=== PATIENT | female | born 1975 | race Two or more races ===

== ENCOUNTER 2024-10-12 17:27 | Inpatient (IN) | payer MEDICARE, MEDICAID ==
[~2024-10-12] VITALS: Ht 157.5 cm; Wt 88.2 kg
[2024-10-12 19:34] LABS: Basophils # (auto) 0.2 10 ^3/uL (0-0.2); Basophils % (auto) 1.7 % (0.0-2.0); Eosinophils # (auto) 0.3 10 ^3/uL (0-0.8); Eosinophils % (auto) 2.2 % (0.0-7.0); Hematocrit 36.4 % (36.0-46.0); Hemoglobin 12.3 g/dL (12.2-16.2); Lymphocytes # (auto) 3.1 10 ^3/uL (0.4-5.4); Lymphocytes % (auto) 21.9 % (10.0-50.0); Mean Corpuscular Hemoglobin 29.6 pg (28.0-32.0); Mean Corpuscular Hgb Conc. 33.8 g/dL (32.0-36.0); Mean Corpuscular Volume 87.5 fL (80.0-100.0); Monocytes # (auto) 1.1 10 ^3/uL (0-1.3); Monocytes % (auto) 7.7 % (0.0-12.0); Neutrophils # (auto) 9.3 10 ^3/uL (1.6-8.6); Neutrophils % (auto) 66.5 % (37.0-80.0); Nucleated Red Blood Cells % 0.1 %; Platelet Count (auto) 532 10^3/uL (140-450); Red Blood Cells 4.16 10^6/uL (4.0-5.20); Red Cell Distribution Width 14.2 % (11.8-14.3); White Blood Cell 13.9 10^3/uL (4.4-10.8)
[2024-10-12 19:42] VITALS: O2SAT 97
[2024-10-12 19:55] LABS: Chloride 102 mmol/L (98-107); Potassium 4.4 mmol/L (3.5-5.1)
[2024-10-12 19:56] LABS: Anion Gap 10 (5-15); Calcium 10.4 mg/dL (8.7-10.4); Carbon Dioxide 22 mmol/L (20-31)
[2024-10-12] MEDS ORDERED: PIPERACILLIN-TAZOB 3.375GM 100 ML IV ONE (20:00)
--- NOTE | 2024-10-12 20:00 | ED.PDOC ---
History of Present Illness(SKN HPI Comments 49 year old female presents to ER for wound check. Patient with PMH significant for uncontrolled DM states she was admitted and had a right sided perianal abscess drained/packed in the OR at [facility] 6 days ago and notes signed out of [facility] AMA 3 days ago after being admitted for IV anti biotics/uncontrolled DM and presents to ER today for wound check. She reports 7/10 pain localized right perianal area. Denies use of medications for current symptoms. 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 Family History Family History: Unknown Social History Smoker: Non-Smoker Alcohol: Denies ETOH Use Drugs: Denies Drug Use Lives In: Home Constitutional: denies: chills, diaphoresis, fatigue, fever, malaise, sweats, weakness, others EENTM: denies: blurred vision, double vision, ear bleeding, ear discharge, ear drainage, ear pain, ear ringing, eye pain, eye redness, hearing loss, mouth pain, mouth swelling, nasal discharge, nose bleeding, nose congestion, nose pain, photophobia, tearing, throat pain, throat swelling, voice changes, others Respiratory: denies: cough, hemoptysis, orthopnea, SOB at rest, shortness of breath, SOB with excertion, stridor, wheezing, others Cardiovascular: denies: chest pain, dizzy spells, diaphoresis, Dyspnea on exert ion, edema, irregular heart beat, left arm pain, lightheadedness, palpitations, PND, syncope, others Gastrointestinal: denies: abdomen distended, abdominal pain, blood streaked bowels, constipated, diarrhea, dysphagia, difficulty swallowing, hematemesis, melena, nausea, poor appetite, poor fluid intake, rectal bleeding, rectal pain, vomiting, others Genitourinary: denies: abnormal vagina bleeding, burning, dyspareunia, dysuria, flank pain, frequency, hematuria, incontinence, pain, , vagina discharge, urgency, others Neurological: denies: dizziness, fainting, headache, left sided numbness, left sided weakness, numbness, paresthesia, pre-existing deficit, right sided numbness, right sided weakness, seizure, speech problems, tingling, tremors, weakness, others Musculoskeletal: denies: back pain, gout, joint pain, joint swelling, muscle pain, muscle stiffness, neck pain, others Integumetry: reports: others (As stated in HPI) Allergic/Immunocompromised: denies: Difficulty Healing, Frequent Infections, Hives, Itching, others Hematologic/Lymphatic: denies: anemia, blood clots, easy bleeding, easy bruising, swollen glands, others Endocrine: denies: excessive hunger, excessive sweating, excessive thirst, excessive urination, flushing, intolerance to cold, intolerance to heat, unexplained weight gain, unexplained weight loss, others Psychiatric: denies: anxiety, bipolar disorder, depression, hopeless, panic disorder, schizophrenia, sleepless, suicidal, others Physical Exam General Appearance: No Apparent Distress HEENT: PERRL/EOMI Neck: Full Range of Motion, Non-Tender, Normal Respiratory: Chest Non-Tender, Lungs Clear, No Accessory Muscle Use, No Respiratory Distress, Normal Breath Sounds Cardiovascular: No Murmur, No Gallop, Regular Rate/Rhythm Breast Exam: Deferred Gastrointestinal: Non Tender, No Pulsatile Mass, Soft Genitalia: Deferred Pelvic: Deferred Rectal: Deferred Extremities: Normal capillary refill, Normal range of motion Neurologic: Alert, No Motor Deficits, Normal Affect, Normal Mood, No Sensory Deficits Cerebellar Function: Normal Reflexes: Normal Skin: Dry, Warm, Other (Packing in place to 2 cm x 2cm wound of right perianal region with mild erythema surrounding wound edges. No drainage/fluctuance note d) Lymphatic: No Adenopathy Was a procedure done? Was a procedure done?: No Sedation Sedation?: No Differential Diagnosis (INTG) Differential Diagnosis: Abrasion Differential Diagnosis: Abscess Abscess: Bacteremia, Gas Gangrene Differential Diagnosis: Retained Foreign Body X-Ray, Labs, Meds, VS Vital Signs Date Time Temp Pulse Resp B/P (MAP) Pulse Ox O2 Delivery O2 Flow Rate FiO2 10/12/24 19:42 97 Room Air* 0 21 10/12/24 19:42 97.3 111 17 148/88 (108) 97 97.3 10/12/24 18:33 97.3 111 17 148/88 (108) 97 97.3 Lab Test 10/12/24 21:19 10/12/24 20:44 10/12/24 19:22 10/12/24 18:09 Range/Units POC Glucose 367 H 395 H 70-106 mg/dl Lactic Acid Level 2.0 2.7 *H 0.4-2.0 mmol/L White Blood Count 13.9 H 4.4-10.8 10^3/uL Red Blood Count 4.16 4.0-5.20 10^6/uL Hemoglobin 12.3 12.2-16.2 g/dL Hematocrit 36.4 36.0-46.0 % Mean Corpuscular Volume 87.5 80.0-100.0 fL Mean Corpuscular Hemoglobin 29.6 28.0-32.0 pg Mean Corpuscular Hemoglobin Concent 33.8 32.0-36.0 g/dL Red Cell Distribution Width 14.2 11.8-14.3 % Platelet Count 532 H 140-450 10^3/uL Mean Platelet Volume 7.8 6.9-10.8 fL Neutrophils (%) (Auto) 66.5 37.0-80.0 % Lymphocytes (%) (Auto) 21.9 10.0-50.0 % Monocytes (%) (Auto) 7.7 0.0-12.0 % Eosinophils (%) (Auto) 2.2 0.0-7.0 % Basophils (%) (Auto) 1.7 0.0-2.0 % Neutrophils # (Auto) 9.3 H 1.6-8.6 10 ^3/uL Lymphocytes # (Auto) 3.1 0.4-5.4 10 ^3/uL Monocytes # (Auto) 1.1 0-1.3 10 ^3/uL Eosinophils # (Auto) 0.3 0-0.8 10 ^3/uL Basophils # (Auto) 0.2 0-0.2 10 ^3/uL Nucleated Red Blood Cells 0.1 % Sodium Level 134 L 136-145 mmol/L Potassium Level 4.4 3.5-5.1 mmol/L Chloride Level 102 98-107 mmol/L Carbon Dioxide Level 22 20-31 mmol/L Anion Gap 10 5-15 Blood Urea Nitrogen 12 9-23 mg/dL Creatinine 0.84 0.550-1.02 mg/dL Glomerular Filtration Rate Calc 85 >90 mL/min BUN/Creatinine Ratio 14.3 10.0-20.0 Serum Glucose 412 *H 74-106 mg/dL Calcium Level 10.4 8.7-10.4 mg/dL Test 10/12/24 18:08 Range/Units POC Glucose 407 *H 70-106 mg/dl Current Medications Medications (Trade) Dose Ordered Sig/Cody Route Start Time Stop Time Status Last Admin Insulin Human Regular (InsuLIN R) 6 units ONCE ONCE IV 10/12/24 20:00 10/12/24 20:05 DC 10/12/24 21:50 Sodium Chloride 1,000 ml @ 1,000 mls/hr Q1H ONCE IV 10/12/24 20:00 10/12/24 20:59 DC 10/12/24 21:13 Sodium Chloride 1,000 ml @ 1,000 mls/hr Q1H ONCE IV 10/12/24 20:15 10/12/24 21:14 DC 10/12/24 21:13 Ceftriaxone Sodium 50 ml @ 100 mls/hr ONCE ONCE IV 10/12/24 20:30 10/12/24 20:59 DC 10/12/24 21:47 CBC reviewed-WBC 13.9 BMP reviewed- glucose 412 Lactic acid reviewed - 2.7 Blood cultures ordered Hep-lock IV ordered NS 2 liters IV ordered Insulin 6 units IV ordered Rocephin 1 g IM ordered Metronidazole 500 mg IV ordered Toradol 30 mg IV ordered Patient verbalized understanding and agreeable with current plan of care, stating she is not going to sign out AMA upon admission Patient has open wound/cellulitis to right perianal region and admitted to hospitalist for continued need for IV antibiotics and for uncontrolled DM Time of 1ST Reevaluation: 19:34 Reevaluation 1ST: N/A Patient Education/Counseling: Diagnosis, Treatment, Prognosis, Need For Follow Up Family Education/Counseling: No Family Present Departure 1 Departure Time of Disposition: 19:52 Impression: Primary Impression: Perianal cellulitis Additional Impression: Uncontrolled diabetes mellitus Qualified Codes: E10.65 - Type 1 diabetes mellitus with hyperglycemia Disposition: ADMITTED INPATIENT Condition: Serious Critical Care Note Critical Care Time?: No Stability Stability form required: No Heart Score Heart Score: Heart Score Response (Comments) Value History N/A 0 EKG N/A 0 Age N/A 0 Risk Factors N/A 0 Troponin N/A 0 Total 0 MADDIE MCKEON October 12, 2024 20:00
[2024-10-12 20:01] LABS: BUN/Creatinine Ratio 14.3 (10.0-20.0); Blood Urea Nitrogen 12 mg/dL (9-23)
[2024-10-12 20:04] LABS: Glucose 412 mg/dL (74-106); Lactic Acid w/Reflex 2.7 mmol/L (0.4-2.0); Sodium 134 mmol/L (136-145)
[2024-10-12] MEDS ORDERED: metroNIDAZOLE 500MG/100ML 100 ML IV ONE (20:30)
[2024-10-12] MEDS: SODIUM CHLORIDE 0.9% 1,000 ML IV ONE ×2 (21:13)
[2024-10-12] MEDS: cefTRIAXone 1GM/50ML D5W 50 ML IV SCH (21:45)
[2024-10-12] MEDS: KETOROLAC TROMETH 30 MG/ML 1ML VIAL IV ONE (21:47)
[2024-10-12] MEDS: cefTRIAXone 1GM/50ML D5W 50 ML IV ONE (21:47)
[2024-10-12] MEDS: InsuLIN REG 1unit/0.01ml Soln (100units/ml) IV ONE (21:50)
[2024-10-12] MEDS ORDERED: PIPERACILLIN-TAZOB 3.375GM 100 ML IV SCH (22:00)
[2024-10-12 22:25] VITALS: BP 151/88; PULSE 95; RESP 19; TEMP 98.3; O2SAT 100
[2024-10-12] MEDS ORDERED: INSU1INJ19 SC (22:43)
[2024-10-12] MEDS ORDERED: HYDR-4798 PO (22:44)
[2024-10-12] MEDS ORDERED: DEXTROSE (50%) 50ML SYRG IV PRN (22:45)
--- NOTE | 2024-10-12 22:46 | DVHHP2 ---
History of Present Illness Reason for Visit: perianal abscess History of Present Illness 49-year-old female with a history of uncontrolled diabetes mellitus presented to the ED for evaluation of a right-sided perianal wound. Six days ago, she underwent I&D and packing of a perianal abscess at [facility]. She left AMA three days ago after partial treatment with antibiotics. She now presents for follow-up and reports 7/10 pain localized to the right perianal area. She denies fever, chills, drainage, changes in bowel movements, or use of medications for current symptoms. No associated constitutional or systemic complaints. 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 Allergies: Penicillin Social History: Smoking: Non-smoker Alcohol: Denies Drugs: Denies Lives at home Review of Systems: Negative except as per HPI Review of Systems Allergies: Coded Allergies: Penicillins (Verified Allergy, Unknown, 10/12/24) Medications Current Medications Medications Dose Ordered Sig/Cody Route Start Time Stop Time Status Last Admin Dose Admin Enoxaparin Sodium 40 mg DAILY SC 10/13/24 10:00 Ketorolac Tromethamine 15 mg Q8HR IV 10/12/24 22:00 10/17/24 21:59 Ceftriaxone Sodium 50 ml @ 100 mls/hr DAILY@09 IV 10/12/24 21:45 Metronidazole 100 ml @ 100 mls/hr Q8HR IV 10/12/24 22:00 Insulin Glargine 25 units HS SC 10/13/24 22:00 UNV Diagnostic Test (Pha) 1 strip ACHS 10/13/24 07:00 UNV Insulin Human Regular HS SC 10/13/24 22:00 UNV Insulin Human Regular AC SC 10/13/24 07:00 UNV Dextrose 50 ml UD PRN IV 10/12/24 22:45 UNV Exam Vital Signs Vital Signs Date Time Temp Pulse Resp B/P (MAP) Pulse Ox O2 Delivery O2 Flow Rate FiO2 10/12/24 22:25 98.3 95 19 151/88 (109) 100 98.3 10/12/24 19:42 Room Air* 0 21 General Appearance: Alert, Oriented X3 HEENT: Atraumatic, PERRLA Respiratory: Clear to auscultation Cardiovascular: Regular rate, Normal S1 Abdominal: Normal bowel sounds, Soft Extremities: No clubbing, No cyanosis, Other (surgical wound with gauze inside, no redness no tenderness ) Neuro: Normal gait, Normal speech Psych/Mental Status: Mental status NL, Mood NL Labs/Xrays Labs Test 10/12/24 21:19 10/12/24 20:44 10/12/24 19:22 Range/Units POC Glucose 367 H 70-106 mg/dl Lactic Acid Level 2.0 0.4-2.0 mmol/L White Blood Count 13.9 H 4.4-10.8 10^3/uL Red Blood Count 4.16 4.0-5.20 10^6/uL Hemoglobin 12.3 12.2-16.2 g/dL Hematocrit 36.4 36.0-46.0 % Mean Corpuscular Volume 87.5 80.0-100.0 fL Mean Corpuscular Hemoglobin 29.6 28.0-32.0 pg Mean Corpuscular Hemoglobin Concent 33.8 32.0-36.0 g/dL Red Cell Distribution Width 14.2 11.8-14.3 % Platelet Count 532 H 140-450 10^3/uL Mean Platelet Volume 7.8 6.9-10.8 fL Neutrophils (%) (Auto) 66.5 37.0-80.0 % Lymphocytes (%) (Auto) 21.9 10.0-50.0 % Monocytes (%) (Auto) 7.7 0.0-12.0 % Eosinophils (%) (Auto) 2.2 0.0-7.0 % Basophils (%) (Auto) 1.7 0.0-2.0 % Neutrophils # (Auto) 9.3 H 1.6-8.6 10 ^3/uL Lymphocytes # (Auto) 3.1 0.4-5.4 10 ^3/uL Monocytes # (Auto) 1.1 0-1.3 10 ^3/uL Eosinophils # (Auto) 0.3 0-0.8 10 ^3/uL Basophils # (Auto) 0.2 0-0.2 10 ^3/uL Nucleated Red Blood Cells 0.1 % Sodium Level 134 L 136-145 mmol/L Potassium Level 4.4 3.5-5.1 mmol/L Chloride Level 102 98-107 mmol/L Carbon Dioxide Level 22 20-31 mmol/L Anion Gap 10 5-15 Blood Urea Nitrogen 12 9-23 mg/dL Creatinine 0.84 0.550-1.02 mg/dL Glomerular Filtration Rate Calc 85 >90 mL/min BUN/Creatinine Ratio 14.3 10.0-20.0 Serum Glucose 412 *H 74-106 mg/dL Calcium Level 10.4 8.7-10.4 mg/dL Assessment/Plan Assessment/Plan #sepsis due to Perianal abcess #H/o drainage 10/08/24 #Uncontrolled diabetes #Hypertension? Admit Medsurg Ceftriaxone Metronidazole Lantus 25ui ISS IV fluids already given Wound consult Case discussed with Dr Leroy Full code Plan discussed with: Patient, Other (rn) My Orders Orders - SARAH RUIZ Procedure Category Date Status Time Admit ADMIT 10/12/24 Transmitted 21:23 Code Status CODE 10/12/24 Transmitted 21:23 Vital Signs CHRISTOPHER 10/12/24 In Process 21:23 Review Orders With CHRISTOPHER 10/12/24 In Process Adm. 21:23 Consistent DIET 10/13/24 Transmitted Carb(Ccho)Diabetes Breakfast Notify Of Changes CHRISTOPHER 10/12/24 In Process From Base 21:23 Advance Directive CHRISTOPHER 10/12/24 In Process 21:23 Patient Condition ORDERS 10/12/24 Transmitted 21:23 Allergies CHRISTOPHER 10/12/24 In Process 21:23 Enoxaparin Sodium PHA 10/13/24 In Process (Lovenox) 10:00 Ketorolac Injection PHA 10/12/24 In Process (Toradol Injection) 22:00 Pharmacy CHRISTOPHER 10/12/24 In Process Clarification: 21:41 Ceftriaxone 1gm/50ml PHA 10/12/24 In Process D5w (Rocephin) 21:45 Metronidazole PHA 10/12/24 In Process 500mg/100ml (Flagyl 22:00 * Wound Consult CONS 10/12/24 Transmitted Insulin Lantus PHA 10/13/24 Logged (Glargine) (Lantus) 22:00 Glucose Blood PHA 10/13/24 Logged (Accu-Chek Comfort 07:00 Insulin R (Human) PHA 10/13/24 Logged (Insulin R) 22:00 Insulin R (Human) PHA 10/13/24 Logged (Insulin R) 07:00 Dextrose 50% Syringe PHA 10/12/24 Logged 22:45 Date of Service: October 12, 2024 Billing Provider: SHERRY LEROY MD Common Visit Codes: [id number] INP/OBS CARE (HIGH) Secondary Visit Codes: [id number] CARE PLAN 30 MINUTES SARAH RUIZ RESIDENT October 12, 2024 22:46
[2024-10-12] MEDS: KETOROLAC TROMETH 30 MG/ML 1ML VIAL IV SCH (22:52)
[2024-10-12 23:03] VITALS: BP 150/82; PULSE 87; RESP 17; TEMP 99.1; O2SAT 95
[2024-10-12] MEDS: metroNIDAZOLE 500MG/100ML 100 ML IV SCH (23:10)
[2024-10-13] VITALS (7 sets, daily range): BP systolic 109–155; BP diastolic 53–87; PULSE 61–90; RESP 17–18; TEMP 98–98.7; O2SAT 93–100
[2024-10-13] MEDS: HYDROcodone-ACET 5/325MG TAB PO ONE (01:50)
[2024-10-13] MEDS: INSULIN LANTUS (GLARGINE) 1 /0.01ml (100units/ml) SC SCH (04:17)
[2024-10-13] MEDS: ACCU-CHEK COMFORT CURVE STRIP VI SCH (05:58)
[2024-10-13] MEDS: InsuLIN REG 1unit/0.01ml Soln (100units/ml) SC SCH ×2 (06:01→22:00)
[2024-10-13 07:33] LABS: Albumin 3.9 g/dL (3.2-4.8); Alkaline Phosphatase 98 U/L (46-116); Anion Gap 9 (5-15); Aspartate Aminotransferase 17 U/L (13-40); Blood Urea Nitrogen 13 mg/dL (9-23); Carbon Dioxide 23 mmol/L (20-31); Potassium 3.7 mmol/L (3.5-5.1); Sodium 140 mmol/L (136-145); Total Protein 6.2 g/dL (5.7-8.2)
[2024-10-13 07:35] LABS: Alanine Aminotransferase 41 U/L (7-40); Bilirubin, Total 0.2 mg/dL (0.2-1.0); Chloride 108 mmol/L (98-107); Glucose 216 mg/dL (74-106)
[2024-10-13 07:46] LABS: Basophils # (auto) 0.1 10 ^3/uL (0-0.2); Eosinophils # (auto) 0.3 10 ^3/uL (0-0.8); Hemoglobin 10.6 g/dL (12.2-16.2); Mean Corpuscular Hemoglobin 29.2 pg (28.0-32.0); Neutrophils # (auto) 6.1 10 ^3/uL (1.6-8.6); Red Blood Cells 3.62 10^6/uL (4.0-5.20)
[2024-10-13 07:49] LABS: Basophils % (auto) 1.1 % (0.0-2.0); Eosinophils % (auto) 2.7 % (0.0-7.0); Hematocrit 31.2 % (36.0-46.0); Lymphocytes # (auto) 2.9 10 ^3/uL (0.4-5.4); Lymphocytes % (auto) 28.4 % (10.0-50.0); Mean Corpuscular Hgb Conc. 33.9 g/dL (32.0-36.0); Mean Corpuscular Volume 86.1 fL (80.0-100.0); Monocytes # (auto) 0.9 10 ^3/uL (0-1.3); Monocytes % (auto) 8.7 % (0.0-12.0); Neutrophils % (auto) 59.1 % (37.0-80.0); Platelet Count (auto) 491 10^3/uL (140-450); Red Cell Distribution Width 14.1 % (11.8-14.3); White Blood Cell 10.3 10^3/uL (4.4-10.8)
[2024-10-13] MEDS: LOSARTAN POTASSIUM 25 MG TAB PO SCH (10:09)
[2024-10-13] MEDS: ENOXAPARIN SOD 40 MG/0.4 ML SYRINGE SC SCH (10:10)
--- NOTE | 2024-10-13 12:04 | DVHPNRES ---
Progress Note Date Seen: October 13, 2024 Resident Creating Document: CHRISS ALLAN RESIDENT Has the PT tested + for MRSA If YES, has PT been informed?: No Medical Necessity Reason Pt with a Central, PICC or Fol: No Medical Necessity Reason History of Present Illness 49-year-old female with a history of uncontrolled diabetes mellitus presented to the ED for evaluation of a right-sided perianal wound. Six days ago, she underwent I&D and packing of a perianal abscess at [facility]. She left AMA three days ago after partial treatment with antibiotics. She now presents for follow-up and reports 12/08 pain localized to the right perianal area. She denies fever, chills, drainage, changes in bowel movements, or use of medications for current symptoms. No associated constitutional or systemic complaints. 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 According to the patient, she had incision and drain on 10/08 but left AMA without receiving any antibiotics. For the past 5 days, she has not used any antibiotics. Patient presented to the ED to have the wound reassess to make sure it was not infected. Patient denied fever, chills, shortness of breath, sweating. Initial vitals showed tachycardia and blood work showed leukocytosis lactic acidosis. Patient admitted and wound care consult. She is currently on Ceftriaxone. Subjective Review of Systems Constitutional: Denies fever no chills no feeling of malaise HEENT: Denies headache, ear pain, ear discharges, conjunctivitis, nasal discharge throat pain Cardiovascular: Denies chest pain, palpitation, orthopnea, PND, or pedal edema Respiratory: Denies shortness of breath, cough cough, sputum production, hemoptysis, GI: Denies abdominal pain, nausea, vomiting, diarrhea, hematemesis, hematochezia, : Denies frequency, urgency, hematuria, Endocrine: Denies unintentional weight gain or weight loss, feeling of hot flashes, Anthony: Denies easy bruising, bleeding disorders, epistaxis Musculoskeletal: Spine pain Psych: No evidence of depression, derek, suicidal ideation Objective vital signs Vital Sign Date Time Temp Pulse Resp B/P (MAP) Pulse Ox O2 Delivery O2 Flow Rate FiO2 10/13/24 10:09 109/64 10/13/24 09:00 98.2 88 17 97 98.2 10/12/24 22:22 Room Air* 0 21 Total Intake and Output 10/12/24 10/12/24 10/13/24 15:00 23:00 07:00 Intake Total 50 ml 600 ml Balance 50 ml 600 ml medications Current Medications Medications Dose Ordered Sig/Cody Route Start Time Stop Time Status Last Admin Dose Admin Enoxaparin Sodium 40 mg DAILY SC 10/13/24 10:00 10/13/24 10:10 40 MG Ketorolac Tromethamine 15 mg Q8HR IV 10/12/24 22:00 10/17/24 21:59 10/12/24 22:52 15 MG Ceftriaxone Sodium 50 ml @ 100 mls/hr DAILY@09 IV 10/12/24 21:45 10/13/24 10:10 100 MLS/HR Metronidazole 100 ml @ 100 mls/hr Q8HR IV 10/12/24 22:00 10/13/24 05:45 100 MLS/HR Diagnostic Test (Pha) 1 strip ACHS 10/13/24 07:00 10/13/24 05:58 1 STRIP Insulin Human Regular HS SC 10/13/24 22:00 Insulin Human Regular AC SC 10/13/24 07:00 10/13/24 06:01 6 UNITS Dextrose 50 ml UD PRN IV 10/12/24 22:45 Insulin Glargine 25 units HS SC 10/13/24 03:30 10/13/24 04:17 25 UNITS Losartan Potassium 25 mg DAILY PO 10/13/24 10:00 10/13/24 10:09 25 MG Examination General Appearance: Alert, Oriented X3, Cooperative, No acute distress HEENT: Atraumatic, PERRLA, EOMI, Mucous membrane moist/pink Respiratory: Clear to auscultation, Normal air movement Cardiovascular: Regular rate, Normal S1, Normal S2, No murmurs, no chest wall tenderness Abdominal: NO distention, no tenderness, bowel sounds present, no scars noted Extremities: No clubbing, No cyanosis, No edema, Normal pulses, No tenderness/swelling Skin: No rashes, No breakdown, No significant lesion Neuro: Normal gait, Normal speech, Strength at 5/5 X4 ext, Normal tone, Sensation intact, Cranial nerves 3-12 NL, Reflexes 2+ Psych/Mental Status: Mental status NL, Mood NL Gluteal region: Notable for bandage, abscess location packed with gauze. Surrounding skin feel thickened like "orange skin" Non erythematous and no drainage. laboratory and microbiology Laboratory Tests 10/13/24 06:54 Test 10/13/24 06:54 Range/Units Serum Glucose 216 H 74-106 mg/dL Problem List/Assessment/Plan Problem List/Assessment/Plan Assessment/Plan sepsis due to Perianal abcess H/o drainage 10/08/24 --> we will consult --> culture --> ceftriaxone --> Adequate hydration Uncontrolled diabetes --> A1c: 11.4 --> Lantus 25 unit, lispros weight based Hypertension --> Continue home medication Chronic Spine arthritis --> Pain management --> [place] for moderate --> [place] for severe pain Goal of care discussed for more than 20 minute: Full code Case and plan discussed with Dr. Hickey Plan discussed with: Patient My Orders My Orders Orders - CHRISS ALLAN Procedure Category Date Status Time Urinalysis LAB 10/13/24 Logged 10:38 Date of Service: October 13, 2024 Billing Provider: SONIA ODONNELL MD Common Visit Codes: [id number] INP/OBS CARE(HIGH) CHRISS ALLAN October 13, 2024 12:04 SONIA ODONNELL MD October 16, 2024 00:31
[2024-10-13] MEDS ORDERED: POM (12:10)
[2024-10-13] MEDS: HYDROcodone-ACET 10/325MG TAB PO PRN (13:13)
[2024-10-13] MEDS: INSULIN LISPRO (HUMAN) 100 UNITS/ML ML SC SCH (18:12)
[2024-10-13 19:33] LABS: Urine Bacteria FEW /hpf (None Seen); Urine Blood Negative /uL (Negative); Urine Budding Yeast OCCASIONAL /hpf (None Seen); Urine Clarity Turbid (Clear); Urine Color Light-Yellow (Yellow); Urine Protein, UAD Negative (Negative); Urine Specific Gravity 1.024 (1.001-1.035); Urine Squamous Epithelial Cell MOD /hpf (<5); Urine Urobilinogen Normal (Negative); Urine WBC 6 /HPF (0-5); Urine pH 6.5 (5.0-9.0)
[2024-10-13] MEDS ORDERED: INSULIN LANTUS (GLARGINE) 1 /0.01ml (100units/ml) SC SCH (22:00)
[2024-10-13] MEDS: FLUCONAZOLE 200MG/100ML 100 ML IV ONE (22:18)
[2024-10-13] MEDS: MUPIROCIN 2% OINT 15gm or 22gm FOR MRSA NARES EACHNOSTRI SCH (23:01)
[2024-10-14] VITALS (7 sets, daily range): BP systolic 120–153; BP diastolic 71–88; PULSE 68–87; RESP 17–20; TEMP 98.3–98.8; O2SAT 96–99
[2024-10-14 07:12] LABS: Basophils # (auto) 0.1 10 ^3/uL (0-0.2); Eosinophils # (auto) 0.2 10 ^3/uL (0-0.8); Eosinophils % (auto) 2.6 % (0.0-7.0); Hemoglobin 10.7 g/dL (12.2-16.2); Lymphocytes # (auto) 2.4 10 ^3/uL (0.4-5.4); Lymphocytes % (auto) 28.2 % (10.0-50.0); Mean Corpuscular Hemoglobin 29.8 pg (28.0-32.0); Mean Corpuscular Hgb Conc. 34.5 g/dL (32.0-36.0); Mean Corpuscular Volume 86.2 fL (80.0-100.0); Monocytes # (auto) 0.7 10 ^3/uL (0-1.3); Monocytes % (auto) 8.2 % (0.0-12.0); Neutrophils # (auto) 5.1 10 ^3/uL (1.6-8.6); Nucleated Red Blood Cells % 0.2 %; Platelet Count (auto) 442 10^3/uL (140-450); Red Cell Distribution Width 14.1 % (11.8-14.3); White Blood Cell 8.5 10^3/uL (4.4-10.8)
[2024-10-14 07:16] LABS: Anion Gap 9 (5-15); Calcium 9.2 mg/dL (8.7-10.4); Carbon Dioxide 23 mmol/L (20-31); Chloride 105 mmol/L (98-107); Potassium 3.9 mmol/L (3.5-5.1); Sodium 137 mmol/L (136-145)
[2024-10-14 07:17] LABS: BUN/Creatinine Ratio 16.1 (10.0-20.0); Blood Urea Nitrogen 9 mg/dL (9-23); Glucose 223 mg/dL (74-106)
[2024-10-14] MEDS ORDERED: VANCOMYCIN PER PHARMACY 0 MG IV SCH (08:45)
[2024-10-14] MEDS: FLUCONAZOLE 200MG/100ML 100 ML IV SCH (10:00)
[2024-10-14] MEDS: VANCOMYCIN 1.5GM/300ML 300 ML IV ONE (11:00)
--- NOTE | 2024-10-14 17:21 | DVHPNRES ---
Progress Note Date Seen: October 14, 2024 Resident Creating Document: CHRISS ALLAN RESIDENT Has the PT tested + for MRSA If YES, has PT been informed?: No Medical Necessity Reason Pt with a Central, PICC or Fol: No Medical Necessity Reason History of Present Illness 49-year-old female with a history of uncontrolled diabetes mellitus presented to the ED for evaluation of a right-sided perianal wound. Six days ago, she underwent I&D and packing of a perianal abscess at [facility]. She left AMA three days ago after partial treatment with antibiotics. She now presents for follow-up and reports / pain localized to the right perianal area. She denies fever, chills, drainage, changes in bowel movements, or use of medications for current symptoms. No associated constitutional or systemic complaints. 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 According to the patient, she had incision and drain on 10/08 but left AMA without receiving any antibiotics. For the past 5 days, she has not used any antibiotics. Patient presented to the ED to have the wound reassess to make sure it was not infected. Patient denied fever, chills, shortness of breath, sweating. Initial vitals showed tachycardia and blood work showed leukocytosis lactic acidosis. Patient admitted and wound care consult. She is currently on Ceftriaxone. PN: 10/14/2024 Patient seen and examined today at the bedside. She is doing a lot better. She has no major complaint. Her wound was dressed by wound Care nurse and everything is intact. No discharges noted. Wound culture however grew staph aureus pending sensitivity. Today, I started the patient on vancomycin because We will sent patient home on antibiotics based on the sensitivity. Plan is to send her home tomorrow ( 10/15/2024) with antibiotics, insulin, glucometer,stripes and lancet for the next one month. Counselled patient about diabetes and its complication and the importance of keeping a tight glycemic control. Subjective Review of Systems Constitutional: Denies fever no chills no feeling of malaise HEENT: Denies headache, ear pain, ear discharges, conjunctivitis, nasal discharge throat pain Cardiovascular: Denies chest pain, palpitation, orthopnea, PND, or pedal edema Respiratory: Denies shortness of breath, cough cough, sputum production, hemoptysis, GI: Denies abdominal pain, nausea, vomiting, diarrhea, hematemesis, hematochezia, : Denies frequency, urgency, hematuria, Endocrine: Denies unintentional weight gain or weight loss, feeling of hot flashes, Anthony: Denies easy bruising, bleeding disorders, epistaxis Musculoskeletal: Denies joint pains, muscle aches Psych: No evidence of depression, derek, suicidal ideation Objective vital signs Vital Sign Date Time Temp Pulse Resp B/P (MAP) Pulse Ox O2 Delivery O2 Flow Rate FiO2 10/14/24 16:45 98.8 75 17 145/78 (100) 98 98.8 10/14/24 08:05 Room Air* 0 21 Total Intake and Output 10/13/24 10/13/24 10/14/24 15:00 23:00 07:00 Intake Total 290 ml 1110 ml 950 ml Balance 290 ml 1110 ml 950 ml medications Current Medications Medications Dose Ordered Sig/Cody Route Start Time Stop Time Status Last Admin Dose Admin Enoxaparin Sodium 40 mg DAILY SC 10/13/24 10:00 10/14/24 08:45 40 MG Ketorolac Tromethamine 15 mg Q8HR IV 10/12/24 22:00 10/17/24 21:59 10/12/24 22:52 15 MG Ceftriaxone Sodium 50 ml @ 100 mls/hr DAILY@09 IV 10/12/24 21:45 10/14/24 08:45 100 MLS/HR Diagnostic Test (Pha) 1 strip ACHS 10/13/24 07:00 10/14/24 11:13 1 STRIP Insulin Human Regular HS SC 10/13/24 22:00 Insulin Human Regular AC SC 10/13/24 07:00 10/14/24 11:13 3 UNITS Dextrose 50 ml UD PRN IV 10/12/24 22:45 Insulin Glargine 25 units HS SC 10/13/24 03:30 10/13/24 04:17 25 UNITS Losartan Potassium 25 mg DAILY PO 10/13/24 10:00 10/14/24 08:45 25 MG Acetaminophen/ Hydrocodone Bitart 1 tab Q6HP PRN PO 10/13/24 12:30 10/14/24 11:02 1 TAB Insulin Human Lispro 7 units AC SC 10/13/24 17:00 10/14/24 11:13 7 UNITS Mupirocin 1 applic BID EACHNOSTRI 10/13/24 22:00 10/18/24 21:59 10/14/24 08:46 1 APPLIC Fluconazole 100 ml @ 100 mls/hr DAILY IV 10/14/24 10:00 10/14/24 10:00 100 MLS/HR Vancomycin HCl 0 ml @ 0 mls/hr UD IV 10/14/24 08:45 Examination General Appearance: Alert, Oriented X3, Cooperative, No acute distress HEENT: Atraumatic, PERRLA, EOMI, Mucous membrane moist/pink Respiratory: Clear to auscultation, Normal air movement Cardiovascular: Regular rate, Normal S1, Normal S2, No murmurs, no chest wall tenderness Abdominal: NO distention, no tenderness, bowel sounds present, no scars noted Extremities: No clubbing, No cyanosis, No edema, Normal pulses, No tenderness/swelling Skin: No rashes, No breakdown, No significant lesion Neuro: Normal gait, Normal speech, Strength at 5/5 X4 ext, Normal tone, Sensation intact, Cranial nerves 3-12 NL, Reflexes 2+ Psych/Mental Status: Mental status NL, Mood NL Perianal region Wound is cleaned and dressed No pus or discharges noted laboratory and microbiology Laboratory Tests 10/14/24 06:05 Test 10/14/24 06:05 Range/Units Serum Glucose 223 H 74-106 mg/dL Microbiology Date/Time Source Procedure Growth Status 10/13/24 11:05 Anus Gram Stain - Final Resulted 10/13/24 11:05 Anus Wound Culture - Preliminary Resulted 10/13/24 02:47 Nose MRSA Screen - Final Methicillin Resistant S.aureus Complete 10/12/24 20:44 Blood Blood Culture - Preliminary NO GROWTH AFTER 24 HOURS OF INCUBATION. Resulted Problem List/Assessment/Plan Problem List/Assessment/Plan Assessment/Plan sepsis due to Perianal abcess H/o drainage 10/08/24 --> Culture: staph aureus --> we will consult --> Switched to Vancomycin per pharmacy --> Adequate hydration Perianal deep wound -> cleaned and dressed --> wound care following Uncontrolled diabetes --> A1c: 11.4 --> Lantus 25 unit, lispros weight based Hypertension --> Continue home medication Chronic Spine arthritis --> Pain management --> [place] for moderate --> [place] for severe pain Goal of care discussed for more than 18 minute: Full code Case and plan discussed with Dr. Hickey Plan discussed with: Patient My Orders My Orders Orders - CHRISS ALLAN Procedure Category Date Status Time Cleanse Wound With CHRISTOPHER 10/13/24 In Process Wound Clean 11:05 Fluconazole PHA 10/14/24 In Process 200mg/100ml (Diflucan 10:00 Vancomycin Per PHA 10/14/24 In Process Pharmacy 08:45 Dietary NOTICE 10/14/24 Transmitted Recommendations 15:31 Dietary Evaluation Review Comments: 1. Juven1 pk BID (ordered per ONS protocol) 2. CCHO 60gm diet 3. Refer CDE on DC 4. Continue current POC Expected Outcomes/Goals: To meet >75% estimated needs wound to improve Fu 3-5 days Date of Service: October 14, 2024 Billing Provider: SONIA ODONNELL MD Common Visit Codes: [id number] INP/OBS CARE(HIGH) CHRISS ALLAN RESIDENT October 14, 2024 17:21 SONIA ODONNELL MD October 16, 2024 01:24
[2024-10-14] MEDS: VANCOMYCIN 1.5GM/300ML 300 ML IV SCH (23:20)
[2024-10-15 05:00] VITALS: BP 152/88; PULSE 81; RESP 20; TEMP 98.3; O2SAT 99
[2024-10-15 06:56] LABS: Eosinophils # (auto) 0.2 10 ^3/uL (0-0.8); Eosinophils % (auto) 2.3 % (0.0-7.0); Hemoglobin 12.4 g/dL (12.2-16.2); Monocytes # (auto) 0.7 10 ^3/uL (0-1.3); Neutrophils # (auto) 5.8 10 ^3/uL (1.6-8.6); Nucleated Red Blood Cells % 0.1 %; White Blood Cell 9.2 10^3/uL (4.4-10.8)
[2024-10-15 06:59] LABS: Basophils # (auto) 0.2 10 ^3/uL (0-0.2); Basophils % (auto) 1.8 % (0.0-2.0); Hematocrit 35.4 % (36.0-46.0); Lymphocytes # (auto) 2.3 10 ^3/uL (0.4-5.4); Lymphocytes % (auto) 25.4 % (10.0-50.0); Mean Corpuscular Hgb Conc. 34.9 g/dL (32.0-36.0); Mean Corpuscular Volume 85.9 fL (80.0-100.0); Monocytes % (auto) 7.8 % (0.0-12.0); Neutrophils % (auto) 62.7 % (37.0-80.0); Platelet Count (auto) 479 10^3/uL (140-450); Red Blood Cells 4.12 10^6/uL (4.0-5.20); Red Cell Distribution Width 13.8 % (11.8-14.3)
[2024-10-15 07:05] LABS: Anion Gap 8 (5-15); Carbon Dioxide 24 mmol/L (20-31); Chloride 105 mmol/L (98-107); Potassium 3.9 mmol/L (3.5-5.1); Sodium 137 mmol/L (136-145)
[2024-10-15 07:11] LABS: BUN/Creatinine Ratio 11.5 (10.0-20.0)
[2024-10-15 07:17] LABS: Blood Urea Nitrogen 7 mg/dL (9-23); Calcium 10.6 mg/dL (8.7-10.4); Glucose 168 mg/dL (74-106)
[2024-10-15 08:39] VITALS: BP 124/72; PULSE 80; RESP 16; TEMP 98.3; O2SAT 99
[2024-10-15] MEDS ORDERED: BLOO-169 XX (12:50)
[2024-10-15] MEDS ORDERED: LOS25T PO (12:50)
[2024-10-15] MEDS ORDERED: LANC-209 XX (12:50)
[2024-10-15] MEDS ORDERED: BACDST PO (12:50)
[2024-10-15] MEDS ORDERED: GLUC-224 VI (12:50)
[2024-10-15] MEDS ORDERED: INSU100I51 SC (12:50)
[2024-10-15] MEDS ORDERED: ISOP70MI4 EX (12:50)
[2024-10-15] MEDS ORDERED: INSU1INJ19 SC (12:52)
--- NOTE | 2024-10-15 12:56 | DVHDSRES ---
Discharge Summary Date of Admission Resident Creating Document: CHRISS ALLAN RESIDENT October 12, 2024 at 21:23 Date of Discharge: October 15, 2024 Admitting Diagnosis Perianal wound Labs/Diagnostic Data: Laboratory Results Test 10/15/24 11:15 10/15/24 06:24 10/13/24 16:00 10/13/24 06:54 POC Glucose 192 mg/dl (70-106) White Blood Count 9.2 10^3/uL (4.4-10.8) Red Blood Count 4.12 10^6/uL (4.0-5.20) Hemoglobin 12.4 g/dL (12.2-16.2) Hematocrit 35.4 % (36.0-46.0) Mean Corpuscular Volume 85.9 fL (80.0-100.0) Mean Corpuscular Hemoglobin 30.0 pg (28.0-32.0) Mean Corpuscular Hemoglobin Concent 34.9 g/dL (32.0-36.0) Red Cell Distribution Width 13.8 % (11.8-14.3) Platelet Count 479 10^3/uL (140-450) Mean Platelet Volume 7.9 fL (6.9-10.8) Neutrophils (%) (Auto) 62.7 % (37.0-80.0) Lymphocytes (%) (Auto) 25.4 % (10.0-50.0) Monocytes (%) (Auto) 7.8 % (0.0-12.0) Eosinophils (%) (Auto) 2.3 % (0.0-7.0) Basophils (%) (Auto) 1.8 % (0.0-2.0) Neutrophils # (Auto) 5.8 10 ^3/uL (1.6-8.6) Lymphocytes # (Auto) 2.3 10 ^3/uL (0.4-5.4) Monocytes # (Auto) 0.7 10 ^3/uL (0-1.3) Eosinophils # (Auto) 0.2 10 ^3/uL (0-0.8) Basophils # (Auto) 0.2 10 ^3/uL (0-0.2) Nucleated Red Blood Cells 0.1 % Sodium Level 137 mmol/L (136-145) Potassium Level 3.9 mmol/L (3.5-5.1) Chloride Level 105 mmol/L (98-107) Carbon Dioxide Level 24 mmol/L (20-31) Anion Gap 8 (5-15) Blood Urea Nitrogen 7 mg/dL (9-23) Creatinine 0.61 mg/dL (0.550-1.02) Glomerular Filtration Rate Calc 110 mL/min (>90) BUN/Creatinine Ratio 11.5 (10.0-20.0) Serum Glucose 168 mg/dL (74-106) Calcium Level 10.6 mg/dL (8.7-10.4) Urine Color Light-yellow (Yellow) Urine Clarity Turbid (Clear) Urine pH 6.5 (5.0-9.0) Urine Specific [place] 1.024 (1.001-1.035) Urine Protein Negative (Negative) Urine Ketones Negative (Negative) Urine Blood Negative /uL (Negative) Urine Nitrite Negative (Negative) Urine Bilirubin Negative (Negative) Urine Urobilinogen Normal mg/dL (Negative) Urine Leukocyte Esterase 1+ /uL (Negative) Urine RBC <1 /hpf (0 - 4) Urine Microscopic WBC 6 /HPF (0-5) Urine Squamous Epithelial Cells Mod /hpf (<5) Urine Bacteria Few /hpf (None Seen) Urine Yeast (Budding) Occasional /hpf (None Urine Glucose 4+ mg/dL (Normal) Hemoglobin A1c 11.4 % A1C (<5.7) Total Bilirubin 0.2 mg/dL (0.2-1.0) Aspartate Amino Transferase (AST) 17 U/L (13-40) Alanine Aminotransferase (ALT) 41 U/L (7-40) Alkaline Phosphatase 98 U/L (46-116) Total Protein 6.2 g/dL (5.7-8.2) Albumin 3.9 g/dL (3.2-4.8) Thyroid Stimulating Hormone (TSH) 1.64 uIU/mL (0.55-4.78) Test 10/12/24 20:44 Lactic Acid Level 2.0 mmol/L (0.4-2.0) Other Laboratory Tests 10/15/24 06:24 Brief Hx & Hospital Course: Libra Valdez is a 49-year-old female with a history of uncontrolled diabetes mellitus (A1c 11.4%), hypertension, and chronic spinal arthritis presented to the ED with a right-sided perianal wound. She had undergone incision and drainage (I&D) of a perianal abscess six days prior at [facility] but left against medical advice after partial antibiotic treatment. On presentation, she reported localized pain (12/08) without systemic symptoms. She was admitted for sepsis secondary to a perianal abscess and started on IV ceftriaxone and metronidazole, along with insulin therapy and IV fluids. Wound care was initiated, and the wound was noted to be packed with gauze, with surrounding skin showing induration but no erythema or drainage. A wound culture later grew Staphylococcus aureus, prompting a switch to vancomycin. Her condition improved significantly with no further complaints, and the wound remained clean and intact. She was counseled on diabetes management and the importance of glycemic control. patient was continuously monitored for blood glucose with Accu-Chek sent Lantus along with sliding scale. Pain management for chronic spinal arthritis was addressed with Toradol and [place] as needed. She will continue her home antihypertensive medications.Patient condition was improved, hemodynamically stable and in condition to be discharged home with optimal medical treatment as described below. Patient was advised to follow up with PCP and this discharge Clinic for further management. Patient was counseled regarding medication adherence and explained risks of not taking medications. General Appearance: Alert, Oriented X3, Cooperative, No acute distress HEENT: Atraumatic, PERRLA, EOMI, Mucous membrane moist/pink Respiratory: Clear to auscultation, Normal air movement Cardiovascular: Regular rate, Normal S1, Normal S2, No murmurs, no chest wall tenderness Abdominal: NO distention, no tenderness, bowel sounds present, no scars noted Extremities: No clubbing, No cyanosis, No edema, Normal pulses, No tenderness/swelling Skin: No rashes, No breakdown, No significant lesion Neuro: Normal gait, Normal speech, Strength at 5/5 X4 ext, Normal tone, Sensation intact, Cranial nerves 3-12 NL, Reflexes 2+ Psych/Mental Status: Mental status NL, Mood NL Perianal region Wound is cleaned and dressed No pus or discharges noted Condition at Discharge: Stable Final Diagnosis/Problems List Sepsis due to Perianal abcess H/o drainage 10/08/24 MRSA positive Perianal deep wound Uncontrolled diabetes , A1c: 11.4 Hypertension Uncontrolled Chronic Spine arthritis Discharge Disposition: Home Discharge Instruct/Medications Diet: Consistent carbohydrate, Cardiac 2g Na,low cholest Activity: No Restrictions, As Tolerated Follow Up/Referral: PCP for medication adjustment Discharge Clinic for the follow up of BMP panel Medications: Bactrim ds 2 times daily for 7 days Insulin(short and long-acting) along with glucose strips and glucometer as prescribed Losartan daily 1 time Discharge Statement: "Patient was advised to return to the ER or call 911 if any headaches, dizziness, shortness of breath, chest pain, abdominal pain, bleeding, fevers, or worsening of medical condition. Patient was counseled about treatment plan, medications, possible side effects, patientverbalized understanding. All questions were answered to the best of my ability. This discharge took greater then 30 minutes in planning, reviewing documentation, counseling the patient, and discussing with other team members." ASSESSMENT ASSESSMENT Assessment Sepsis due to Perianal abcess H/o drainage 10/08/24 MRSA positive Perianal deep wound Uncontrolled diabetes , A1c: 11.4 Hypertension Uncontrolled Chronic Spine arthritis Date of Service: October 15, 2024 Billing Provider: SONIA ODONNELL MD Common Visit Codes: [id number] DISCH DAY >30min DAVID ROJAS RESIDENT October 15, 2024 12:56 SONIA ODONNELL MD October 17, 2024 00:36
[2024-10-15 13:05] VITALS: BP 136/98; PULSE 67; RESP 16; TEMP 98.6; O2SAT 98
[2024-10-15 13:54] VITALS: BP 124/72
== END 2024-10-15 15:30 | disposition home or self-care (01) | DRG 872 ==
LOC: ER 17:27 → OVERFLOW 21:23 → WEST WING 23:03
PROVIDERS: ADMIT Student in an Organized Health Care Education/Training Program; ATTEND Emergency Medicine
DX: A41.02 Sepsis due to Methicillin resistant Staphylococcus aureus (principal); K61.0 Anal abscess; I10 Essential (primary) hypertension; S31.839A Unspecified open wound of anus, initial encounter; M47.819 Spondylosis without myelopathy or radiculopathy, site unspecified; E11.9 Type 2 diabetes mellitus without complications; Z87.59 Personal history of other complications of pregnancy, childbirth and the puerperium; Z88.0 Allergy status to penicillin; Y93.89 Activity, other specified; Y92.89 Other specified places as the place of occurrence of the external cause; X58.XXXA Exposure to other specified factors, initial encounter; Y99.8 Other external cause status
CPT/HCPCS: 36415; 80048; 80053; 81001; 82962; 83036; 83605; 84443; 85025; 87040; 87077; 87081; 87186; 87205; 96365; 96375; G0378; J1450; J1815; J1885; J3490